=== PATIENT | female | born 2000 | race Caucasian/White ===

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

== ENCOUNTER 2021-01-25 09:11 | Emergency (ER) | payer BC ==
[~2021-01-25] VITALS: Ht 160 cm; Wt 73.0 kg
[2021-01-25 09:48] LABS: URINE BILIRUBIN - DIPSTICK NEGATIVE (NEGATIVE); URINE BLOOD DIPSTICK NEGATIVE (NEGATIVE); URINE COLOR YELLOW; URINE GLUCOSE - DIPSTICK NEGATIVE (NEGATIVE); URINE KETONE TRACE mg/dL (NEGATIVE); URINE LEUK ESTERASE NEGATIVE (NEGATIVE); URINE PH 5.5 (4.5-8.0); URINE PROTEIN - DIPSTICK NEGATIVE (NEG-TRACE); URINE SPECIFIC GRAVITY >=1.030; URINE UROBILINOGEN - DIPSTICK 0.2 E.U./dL (0.2)
[2021-01-25 09:50] LABS: HEMATOCRIT 34.4 % (37.0-47.0); HEMOGLOBIN 11.4 g/dl (12.0-16.0); IMMATURE GRANULOCYTES 0.4 % (0.0-5.0); MEAN CELL VOLUME 77.3 fL CALC (80.0-100.0); MEAN CORPUSCULAR HGB 25.6 pG CALC (26.0-32.0); MEAN CORPUSCULAR HGB CONC 33.1 g/dL CAL (32.0-36.0); NEUT# 9.3 thou/uL (2.00-7.15); RED BLOOD COUNT 4.45 mill/uL (4.20-5.60); RED CELL DISTRI WIDTH 15.1 % (11.5-15.5); URINE NITRITE - DIPSTICK NEGATIVE (Negative)
[2021-01-25 10:12] LABS: ALBUMIN 4.3 g/dL (3.2-5.0); ALKALINE PHOSPHATASE 48 u/l (38-126); ANION GAP 12 (6-22 (CALC)); BILIRUBIN, TOTAL 0.6 mg/dL (0.0-1.4); BUN 9 mg/dL (8-21); BUN/CREATININE RATIO 15 (12-20 (CALC)); CARBON DIOXIDE 25 mmol/l (22-30); CHLORIDE 103 mmol/l (95-108); CREATININE 0.6 mg/dL (0.5-1.0); GFR > 60 ML/MIN (>=60 (CALC)); GFR FOR AFR.AMER. > 60 ML/MIN (>=60 (CALC)); LIPASE 36 u/l (23-300); POTASSIUM 3.7 mmol/l (3.5-5.1); SGOT/AST 19 u/l (14-36); SODIUM 136 mmol/l (137-146)
[2021-01-25 10:55] LABS: BETA-HCG, QUANT(RESULT NUMBER) 18832 mIU/mL
[2021-01-25] MEDS ORDERED: DICLEGIS1 TAB PO (12:44)
[2021-01-25 13:11] VITALS: BP 105/52
== END 2021-01-25 13:15 | disposition home or self-care (01) | DRG 832 ==
LOC: ED 09:11
DX: O21.0 Mild hyperemesis gravidarum (principal); O99.111 Other diseases of the blood and blood-forming organs and certain disorders involving the immune mechanism complicating pregnancy, first trimester; D72.829 Elevated white blood cell count, unspecified; O99.331 Smoking (tobacco) complicating pregnancy, first trimester; F17.200 Nicotine dependence, unspecified, uncomplicated; Z3A.01 Less than 8 weeks gestation of pregnancy

== ENCOUNTER 2022-01-04 11:48 | Emergency (ER) | payer OTHER ==
[~2022-01-04] VITALS: Ht 160 cm; Wt 71.2 kg
[2022-01-04] VITALS (8 sets, daily range): BP systolic 92–137; BP diastolic 52–76
[~2022-01-04 11:48] MED LIST changes: +DICLEGIS1 TAB PO
[2022-01-04] MEDS ORDERED: ESTRA/NORETH1 TAB PO (12:12)
== END 2022-01-04 13:28 | disposition home or self-care (01) ==
LOC: ED 11:48
DX: J35.8 Other chronic diseases of tonsils and adenoids (principal); F17.200 Nicotine dependence, unspecified, uncomplicated; Z20.822 Contact with and (suspected) exposure to COVID-19

== ENCOUNTER 2022-06-13 19:26 | Emergency (ER) | payer OTHER ==
[~2022-06-13] VITALS: Ht 160 cm; Wt 64.0 kg
[~2022-06-13 19:26] MED LIST changes: +ESTRA/NORETH1 TAB PO
[2022-06-13 20:34] VITALS: BP 119/81
== END 2022-06-13 20:39 | disposition home or self-care (01) ==
LOC: ED 19:26
DX: K91.840 Postprocedural hemorrhage of a digestive system organ or structure following a digestive system procedure (principal); Y83.6 Removal of other organ (partial) (total) as the cause of abnormal reaction of the patient, or of later complication, without mention of misadventure at the time of the procedure

== ENCOUNTER 2022-07-16 21:06 | Emergency (ER) | payer OTHER ==
[~2022-07-16] VITALS: Ht 160 cm; Wt 63.0 kg
[2022-07-16 21:16] VITALS: BP 121/83
[2022-07-16 21:30] VITALS: BP 103/56
[2022-07-16 22:00] VITALS: BP 97/50
[2022-07-16 22:05] VITALS: BP 97/50
== END 2022-07-16 22:09 | disposition home or self-care (01) ==
LOC: ED 21:06
DX: S63.502A Unspecified sprain of left wrist, initial encounter (principal); F17.200 Nicotine dependence, unspecified, uncomplicated; W10.9XXA Fall (on) (from) unspecified stairs and steps, initial encounter; Y93.89 Activity, other specified; Y92.008 Other place in unspecified non-institutional (private) residence as the place of occurrence of the external cause; Y99.0 Civilian activity done for income or pay

== ENCOUNTER 2022-08-29 21:32 | Emergency (ER) | payer OTHER ==
[~2022-08-29] VITALS: Ht 160 cm; Wt 52.2 kg
[2022-08-29 23:15] VITALS: BP 95/45
[2022-08-29 23:30] VITALS: BP 94/41
[2022-08-29 23:45] VITALS: BP 92/54
[2022-08-30] VITALS: BP 96/55
[2022-08-30 00:16] VITALS: BP 88/46
[2022-08-30] MEDS ORDERED: BACTRIM DS1 TAB PO (00:17)
[2022-08-30 00:21] VITALS: BP 122/67
== END 2022-08-30 00:32 | disposition home or self-care (01) ==
LOC: ED 21:32
DX: L02.31 Cutaneous abscess of buttock (principal); F17.200 Nicotine dependence, unspecified, uncomplicated

== ENCOUNTER 2024-11-01 02:25 | Emergency (ER) | payer SELFPAY ==
[~2024-11-01] VITALS: Ht 160 cm; Wt 95.0 kg
[~2024-11-01 02:25] MED LIST changes: +BACTRIM DS1 TAB PO; +NITROFURANTN100 M2 PO; +TRAMADOL HCL50 MG PO; +VOLTAREN - GENE75 MG PO; +ZOFRAN4 MG/TAB PO
[2024-11-01 02:29] VITALS: BP 120/84
[2024-11-01 02:30] VITALS: BP 120/86
[2024-11-01 03:22] LABS: BASO% 0.2 % (0-3); EOS% 0.7 % (0-8); HEMATOCRIT 40.1 % (37.0-47.0); HEMOGLOBIN 13.3 g/dl (12.0-16.0); IMMATURE GRANULOCYTES 0.4 % (0.0-5.0); MEAN CELL VOLUME 81.5 fL CALC (80.0-100.0); MEAN CORPUSCULAR HGB CONC 33.2 g/dL CAL (32.0-36.0); MONO% 4.3 % (2-13); NEUT# 9.4 thou/uL (2.00-7.15); NEUT% 69.4 % (42-76); RED BLOOD COUNT 4.92 mill/uL (4.20-5.60); RED CELL DISTRI WIDTH 13.5 % (11.5-15.5)
[2024-11-01 03:23] LABS: URINE BILIRUBIN - DIPSTICK Negative (NEGATIVE); URINE BLOOD DIPSTICK Negative (NEGATIVE); URINE GLUCOSE - DIPSTICK Negative (NEGATIVE); URINE KETONE Negative (NEGATIVE); URINE NITRITE - DIPSTICK Negative (Negative); URINE PROTEIN - DIPSTICK Negative (NEG-TRACE); URINE UROBILINOGEN - DIPSTICK 0.2 E.U./dL (0.2)
[2024-11-01 03:25] LABS: URINE COLOR Yellow; URINE LEUK ESTERASE Small (NEGATIVE)
[2024-11-01 03:30] LABS: ALBUMIN 4.3 g/dL (3.2-5.0); ALKALINE PHOSPHATASE 59 u/l (38-126); BUN 9 mg/dL (7-17); BUN/CREATININE RATIO 12 (12-20 (CALC)); CARBON DIOXIDE 22 mmol/l (22-30); CHLORIDE 113 mmol/l (95-108); CREATININE 0.8 mg/dL (0.5-1.0); ESTIMATED GFR 106 ML/MIN (>=90 (CALC)); ETHYL ALCOHOL 272 mg/dl (0-30); POTASSIUM 3.9 mmol/l (3.5-5.1); SGOT/AST 30 u/l (14-36); TOTAL PROTEIN 6.9 g/dL (6.3-8.2)
[2024-11-01 03:32] LABS: URINE SQUAMOUS EPITHELIAL CELL MANY EPI/hpf (0-FEW)
[2024-11-01 03:33] LABS: URINE BACTERIA MODERATE hpf
[2024-11-01 03:33] LABS: ANION GAP 16 (6-22 (CALC)); BILIRUBIN, TOTAL 0.3 mg/dL (0.02-1.3); SODIUM 147 mmol/l (137-146)
[2024-11-01 04:25] VITALS: BP 120/86
== END 2024-11-01 04:25 | disposition home or self-care (01) | DRG 951 ==
LOC: ED 02:25
PROVIDERS: Family Medicine
DX: Z02.89 Encounter for other administrative examinations (principal); S00.511A Abrasion of lip, initial encounter; S50.311A Abrasion of right elbow, initial encounter; S00.531A Contusion of lip, initial encounter; F17.290 Nicotine dependence, other tobacco product, uncomplicated; F10.129 Alcohol abuse with intoxication, unspecified; Y90.8 Blood alcohol level of 240 mg/100 ml or more; F14.10 Cocaine abuse, uncomplicated; F12.10 Cannabis abuse, uncomplicated; Y04.0XXA Assault by unarmed brawl or fight, initial encounter